=== PATIENT | female | born 1985 | race Caucasian/White ===

== ENCOUNTER → 2016-07-26 | Outpatient (CLI) | payer OTHER ==
--- NOTE | 2016-07-26 15:45 | US ---
July 26, [address] Igor Michaud, Thank you for requesting a ultrasound to evaluate the anatomy for your patient, Mrs. Miranda. As you know, Libby is a 31 year old G 2, P 1001 with a sparrow dating 19 w 4 d; VICKI of 12/16 by 6 week ultrasound. She was offered a Aneuploidy screening. Her obstetrical history reveals a section for arrest of dilation. Her son weighed 9 lbs. 2 oz. ULTRASOUND Number of fetuses: 1 Placental location: Posterior; no evidence of previa Placental cord insertion: Intraplacental presentation: Breech Cervix: 3.5 cm viewed transabdominally Maximum Vertical Pocket: 3.2 cm The adnexa were evaluated. No pathology was seen. Right ovary is visualized and seen as normal. It measures 1.7 x 1.3 x 1.7 cm. Left ovary is visualized and seen as normal. It measures 2.3 x 2.1 x 1.8 cm. MEASUREMENTS: Biparietal diameter: 46 mm 19 weeks, 6 days Head circumference: 173 mm 19 weeks, 6 days Abdominal circumference: 147 mm 20 weeks, 0 days Femur length: 31 mm 19 weeks, 6 days Humerus length: 28 mm 19 weeks, 1 days Transcerebellar diameter: 20 mm 19 weeks, 4 days Average ultrasound age: 20 weeks, 0 days Estimated weight: 316 gm weight percentile: 62% ANATOMY Supratentorial brain: Normal including views of the falx, cavum septum pellucidum and choroids Lateral Ventricle: Normal, measuring 4.5 mm Posterior fossa: Normal including the cerebellum and cisterna magna Spine: Normal with limited views of the sacrum secondary to position Nuchal fold: 4.2 mm normal Face: Normal views of the lip and nose area Profile: Normal Palate: Normal appearance of the alveolar ridge Heart: Four Chamber View: Normal including the intraventricular Septum LVOT: Normal RVOT: Normal 3VV: Normal Tracheal View: Normal Aortic Arch: Seen Ductal Arch: Seen SVC/IVC: Seen Heart Rate 152 bpm Diaphragm: Normal appearance without overt abnormality detected Stomach: Normal Umbilical cord insertion: Normal Right kidney: Normal Left kidney: Normal Bladder: Normal Number of cord vessels: Three Upper extremities: Normal Lower extremities: Normal Gender: Male IMPRESSION: 1. Intrauterine at 19 w 4 d, ultrasound is consistent with her established VICKI of 12/16/16 . 2. Normal anatomical survey. 3. Cervical length is normal at 3.5 cm without evidence of insufficiency. RECOMMENDATIONS: I was pleased to review today's ultrasound with your patient and her spouse. I reassured them that t he baby is growing appropriately with normal amniotic fluid volume. Our detailed review of the anatomy did not reveal any overt abnormalities. The following anatomy was not well seen: sa brunilda. However, given the normal appearance of the posterior fossa, the risk of ONTD is very limited. Future ultrasound and consultation is left to your clinical discretion. Thank you for allowing us the opportunity to evaluate your patient. Should you have any further ques tions or concerns please do not hesitate to contact me. Low risk; no E&M. Julianne Hernandez MD Deli/Bak[employer] Associate Maternal Medicine Diagnosis Department of Obstetrics & Gynecology [facility]
== END ==
LOC: FIMAGING 14:25
PROVIDERS: ATTEND Obstetrics & Gynecology
DX: Z34.82 Encounter for supervision of other normal pregnancy, second trimester (principal); Z3A.19 19 weeks gestation of pregnancy

== ENCOUNTER 2016-12-09 07:30 | Inpatient (IN) | payer OTHER ==
[~2016-12-09 07:30] MED LIST: LR 1,000 ML IV SCH; LR 500 ML IV ONE; ceFAZolin 2 GM/DEXTROSE 100 ML IV ONE
[2016-12-13] MEDS ORDERED: CITRIC ACID/SODIUM CITRATE 30 ML UDCUP PO ONE (08:26)
[2016-12-13] MEDS ORDERED: LR 500 ML IV ONE (08:26)
[2016-12-13] MEDS ORDERED: ceFAZolin 2 GM/DEXTROSE 100 ML IV ONE (08:26)
[2016-12-13] MEDS ORDERED: LR 1,000 ML IV SCH (08:30)
[2016-12-13 08:58] LABS: % IMMATURE GRANULYOCYTES 0.5 % (0.0-1.1); ABSOLUTE IMMATURE GRANULOCYTES 0.03 10^3/uL (0.00-0.10); ADD DIFF? NO; ADD MORPH? NO; ADD SCAN? NO; ATYPICAL LYMPHOCYTE FLAG 10 (0-99); FRAGMENT RBC FLAG 0 (0-99); HEMATOCRIT 34.6 % (38.0-47.0); HEMOGLOBIN 11.4 g/dL (12.6-16.3); LEFT SHIFT FLG 0 (0-99); LIPEMIA HEMOLYSIS FLAG 80 (0-99); MEAN CELL HEMOGLOBIN 28.8 pg (27.9-34.1); MEAN CELL HEMOGLOBIN CONCENTR. 32.9 g/dL (32.4-36.7); MEAN CELL VOLUME 87.4 fL (81.5-99.8); MEAN PLATELET VOLUME 12.1 fL (8.7-11.7); PLATELET CLUMPS FLAG 0 (0-99); PLATELET COUNT 141 10^3/uL (150-400); RED BLOOD CELL COUNT 3.96 10^6/uL (4.18-5.33)
[2016-12-13] MEDS ORDERED: PROMETHAZINE HCL 25 MG/ML INJ IVP PRN (09:28)
[2016-12-13] MEDS ORDERED: SIMETHICONE 80 MG TAB CHEW PO PRN (09:28)
--- NOTE | 2016-12-13 09:40 | PREANESOB ---
Obstetric Pre-Anesthesia Info - General Info Proposed Procedure: Repeat C Section : 2 Para: 1 WBD: 39 - Info Status: Full Term Monitors: External FHR Baseline (bpm): 120 FHR Pattern: Reassuring - Labor Status Section History: Repeat Indications for Current Section: Elective/Repeat Labor Epidural: No Anesthesia ROS: Prior epidural for labor and C Section. Allergies/Adverse Reactions: Allergy/AdvReac Type Severity Reaction Status Date / Time No Known Allergies Allergy Unverified 12/07/16 09:01 Visit Medications: Generic Name Dose Route Start Last Admin Trade Name Freq PRN Reason Stop Dose Admin Hydrocodone Bitart/Acetaminophen 1 - 2 tab 12/13/16 09:28 [place] 5/325 PO 12/23/16 09:27 Q4HRS PRN Pain, Moderate Docusate Sodium 100 mg 12/13/16 09:28 Colace PO 06/11/17 09:27 BID PRN Constipation Lactated Ringer's 1,000 mls @ 125 mls/hr 12/07/16 09:30 Lr IV 06/05/17 09:29 CONT CHRISSY Lactated Ringer's 1,000 mls @ 125 mls/hr 12/13/16 08:30 Lr IV 06/11/17 08:29 CONT CHRISSY Ketorolac Tromethamine 30 mg 12/13/16 12:00 Toradol IVP 12/14/16 06:01 Q6HRS CHRISSY Promethazine HCl 25 mg 12/13/16 09:28 Phenergan IVP 06/11/17 09:27 Q6HRS PRN Nausea/Vomiting, Use 1st Simethicone 80 mg 12/13/16 09:28 Mylicon PO 06/11/17 09:27 .TIDMEALS AND HS PRN Gas Discontinued Medications Generic Name Dose Route Start Last Admin Trade Name Freq PRN Reason Stop Dose Admin Citric Acid/Sodium Citrate 30 ml 12/13/16 08:26 Bicitra PO 12/13/16 08:27 ONCALL ONE Cefazolin Sodium/Dextrose 100 mls @ 200 mls/hr 12/07/16 09:01 Ancef 2 Gm (Premix) IV 12/07/16 09:30 ONCALL ONE Protocol Lactated Ringer's 500 mls @ 0 mls/hr 12/07/16 09:01 Lr IV 12/07/16 09:02 ONCE ONE As Directed Cefazolin Sodium/Dextrose 100 mls @ 200 mls/hr 12/13/16 08:26 Ancef 2 Gm (Premix) IV 12/13/16 08:55 ONCALL ONE Protocol Lactated Ringer's 500 mls @ 0 mls/hr 12/13/16 08:26 Lr IV 12/13/16 08:27 ONCE ONE As Directed - Anesthesia History Response to Local Anesthetics: Normal Anesthesia & Operative History: No Prior Problems Family Anesthesia History: Negative - Social History Substance Use/Abuse: Denies - Focused Exam Blood Pressure: 103/61 Heart Rate: 74 Height/Weight (Nursing): Height 165.1 cm Weight 69.4 kg Airway: No abnormalities. Physical Exam: Within normal limits. ASA Status: II Labs: 12/13/16 08:30 - Plan Anesthetic Plan: SAB Consent Signed and on Chart: Yes Patient/Guardian Understands and Agrees to Plan: Yes
[2016-12-13] MEDS ORDERED: morphINE PF 5 MG/10 ML INJ ONE (09:46)
[2016-12-13] MEDS ORDERED: fentaNYL 100 MCG/2 ML INJ ONE (09:46)
[2016-12-13] MEDS ORDERED: OXYTOCIN 100 UNITS/10 ML VIAL ONE (10:55)
[2016-12-13] MEDS ORDERED: DEXAMETHASONE 4 MG/ML VIAL ONE ×2 (10:55)
[2016-12-13] MEDS ORDERED: PHENYLEPHRINE HCL 100 MCG/ML SYR ONE (10:55)
[2016-12-13] MEDS ORDERED: ONDANSETRON 4 MG/2 ML VIAL ONE ×2 (10:55)
--- NOTE | 2016-12-13 11:02 | OBDEL ---
Info Type: Repeat GBS+: No Operative Report - Delivery Pre-op Diagnoses: repeat C/S Post-op Diagnoses: repeat C/S Nulliparous Prior to Delivery: No Presentation at Delivery: Vertex Procedure: Scheduled, Low Transverse Surgeon: Radha Dougherty Supervisor Nurse: Liberty Beltran Anesthesiologist: Ivan Duncan Autocad Technician/WELCOME WAGON HOSTESS: Priya Ghosh L&Lilia Analgesia/Anesthesia Type: Spinal Complications: Other (Specify) (vacuum assisted delivery) IV Fluid (ml): 2,000 EBL: 1000 [place] Data [place] Delivery Date: 12/13/16 Delivery Time: 10:41 Sex of : Male Score (1 Min): 8 Score (5 Min): 9 ICD10 Worksheet Patient Problems: Problems Problem Status Onset Previous section Acute
--- NOTE | 2016-12-13 11:39 | GOP ---
[f rep st] OPERATIVE REPORT DATE OF OPERATION: 12/13/2016 SURGEON: Radha Michaud MD SCOUT EXECUTIVE: Liberty Beltran, certified nurse hoe runner. ANESTHESIA: Spinal. PREOPERATIVE DIAGNOSIS: Intrauterine at 39+ weeks gestation with previous section, desires repeat. POSTOPERATIVE DIAGNOSIS: Intrauterine at 39+ weeks gestation with previous section, desires repeat. PROCEDURE PERFORMED: Repeat low-transverse section. FINDINGS: Viable male infant, Apgars 8 and 9. SPECIMENS: None. ESTIMATED BLOOD LOSS: 1000 mL. INDICATIONS: The patient is a 31-year-old, G1, P0, female who is at 39+ weeks gestation who presents for repeat low-transverse section. DESCRIPTION OF PROCEDURE: The patient was taken to the operating room. She was prepped and draped in normal sterile fashion in the dorsal supine position with a leftward tilt. A surgical time-out was performed verifying the patient' s name, date of , planned procedure, and site. The patient received 2 g of Ancef preoperatively. A Pfannenstiel skin incision was made in the elliptical fashion removing the prior incision. The fascia was incised in the midline and extended laterally. The superior aspect of the fascia was grasped with Chapin clamps, the rectus muscles dissected off bluntly, and with the Bovie cautery, the inferior aspect of the fascia was grasped with Chapin clamps , the rectus muscles dissected off bluntly and with the Bovie cautery, The peritoneum was identified and entered bluntly. The peritoneum was divided. The vesicouterine peritoneum was incised with the Metzenbaum scissors and a bladder flap was created digitally. The bladder blade was replaced. The uterus was incised with a scalpel, and this extended laterally with the bandage scissors. The infant was delivered via vacuum suction. The cord was clamped and cut. Cord blood was obtained. The placenta was delivered spontaneously. The uterus was exteriorized and cleared of all clots and debris. The uterine incision was reapproximated with 0 Monocryl in a running locked fashion in 2 layers. The uterus was returned to the abdomen. The gutters were cleared of all clots and debris. The uterine incision was reinspected and noted to be hemostatic. The subfascial spaces were inspected and noted to be hemostatic. The fascia was reapproximated with 0 Vicryl in a running fashion. The subcutaneous tissue was irrigated and closed with 3-0 Monocryl and the skin was closed with 4-0 Monocryl. All counts were correct x2. COMPLICATIONS: None. OUTCOME: Stable to recovery room. /[id number]/MODL MTDD
[2016-12-13] MEDS: KETOROLAC 30 MG/1 ML SDV IVP SCH ×3 (11:54→23:59)
[2016-12-13] MEDS: HYDROCODONE/APAP 5/325 TAB PO PRN (21:24)
[2016-12-14] MEDS: HYDROCODONE/APAP 5/325 TAB PO PRN ×4 (01:30→19:54)
[2016-12-14] MEDS: DOCUSATE SODIUM 100 MG CAP PO PRN ×2 (01:32→10:06)
[2016-12-14] MEDS: KETOROLAC 30 MG/1 ML SDV IVP SCH (06:03)
--- NOTE | 2016-12-14 08:43 | OBGCSDC ---
General Delivery Information - General Info : 2 Para: 2 Delivery Physician/CNM: Radha Dougherty Rail Crew Member: Liberty Beltran Admission Date: 12/13/16 Labs: Patient ABO/Rh O POSITIVE 12/13/16 08:30 Hct 26.3 % (38.0-47.0) L D 12/14/16 04:20 Vaginal - Diagnosis Presentation at Delivery: Vertex - Operations/Procedures L&D Analgesia/Anesthesia Type: Spinal - Delivery Number of Prior Sections: 1 Indications for Current Section: Elective/Repeat Type: Repeat Surgical Procedures: Scheduled Intra-op Complications: None EBL: 1000 ml L&D Analgesia/Anesthesia Type: Spinal - Hospital Course Antepartum: uncomplicated Intrapartum: uncomplicated : uncomplicated [place] Data [place] Delivery Date: 12/13/16 Delivery Time: 10:41 VICKI: 12/13/16 Gestational Age: 40 week(s) and 1 day(s) Sex of Infant: Male [place] Weight (gm): 3680 g Score (1 Min): 8 Score (5 Min): 9
[2016-12-14] MEDS ORDERED: POLYETHYLENE GLYCOL 3350 17 GM PKT PO PRN (08:45)
[2016-12-14] MEDS ORDERED: BISACODYL 10 MG SUPP PR PRN (08:45)
[2016-12-14] MEDS ORDERED: LACTULOSE 20 GM/30 ML UDCUP PO PRN (08:45)
[2016-12-14] MEDS ORDERED: MAGNESIUM HYDROXIDE 30 ML UDCUP PO PRN (08:45)
--- NOTE | 2016-12-14 08:45 | SOAPPROG ---
SOAP Progress Note Assessment/Plan: Assessment: 31 yo s/p rltcs, pod 1, doing well. Plan: 12/14/16 08:43 Routine postop care. Rh +, rubella immune. HCT appropriate drop for EBL of 1000 ml, will rec begin iron. Anticipate d/c on . Subjective: 31 yo s/p rltcs, pod 1, doing well. Objective: Vital Signs Temp Pulse Resp BP Pulse Ox 36.8 C 77 14 86/52 L 93 12/14/16 04:31 12/14/16 04:31 12/14/16 04:31 12/14/16 04:31 12/14/16 04:31 Laboratory Results 12/14/16 04:20 12/13/16 12/14/16 12/15/16 05:59 05:59 05:59 Intake Total 4800 Output Total 6050 Balance -1250 Physical Exam - Physical Exam General Appearance: no apparent distress Respiratory: lungs clear Cardiac/Chest: regular rate, rhythm Abdomen: non-tender Skin: warm/dry Extremities: normal range of motion, non-tender Neuro/Psych: oriented x 3 ICD10 Worksheet Patient Problems: Problems Problem Status Onset Previous section Acute
[2016-12-14] MEDS: IRON POLYSAC/IRON HEME 28 MG TAB PO SCH (10:07)
[2016-12-14] MEDS: SENNOSIDES/DOCUSATE SODIUM TAB PO SCH ×2 (18:36→19:53)
[2016-12-14] MEDS: IBUPROFEN 600 MG TAB PO PRN (21:50)
[2016-12-15] MEDS: HYDROCODONE/APAP 5/325 TAB PO PRN ×5 (01:22→19:46)
[2016-12-15] MEDS: IBUPROFEN 600 MG TAB PO PRN ×3 (04:05→17:52)
--- NOTE | 2016-12-15 08:42 | OBGCSDC ---
General Delivery Information - General Info : 2 Para: 2 Delivery Physician/CNM: Radha Dougherty Ivory Polisher: Liberty Beltran Admission Date: 12/13/16 Labs: Patient ABO/Rh O POSITIVE 12/13/16 08:30 Hct 26.3 % (38.0-47.0) L D 12/14/16 04:20 Vaginal - Diagnosis Presentation at Delivery: Vertex - Operations/Procedures L&D Analgesia/Anesthesia Type: Spinal - Delivery Number of Prior Sections: 1 Type: Repeat Surgical Procedures: Scheduled Intra-op Complications: None EBL: 1000 ml L&D Analgesia/Anesthesia Type: Spinal - Hospital Course Antepartum: Scheduled repeat LTCS Intrapartum: Repeat C/S, EBL 1000 ml : Routine post-op care. Meeting all milestones on POD#2. Rh pos, Rub imm Appropriate drop in H/H from 34.6 to 26.3 after EBL 1000 ml. Home with iron. Asymptomatic Data [place] Delivery Date: 12/13/16 Delivery Time: 10:41 VICKI: 12/13/16 Gestational Age: 40 week(s) and 2 day(s) Sex of : Male [place] Weight (gm): 3680 g Score (1 Min): 8 Score (5 Min): 9 Discharge Information - Discharge Information Discharge Medications: Iron, Hydrocodone, Ibuprofen Condition: Good Instruction/Follow Up: See Instruction Sheet, Two Weeks Discharge Physician/CNM: Rosemary Turner
[2016-12-15] MEDS: IRON POLYSAC/IRON HEME 28 MG TAB PO SCH (08:57)
[2016-12-15] MEDS: SENNOSIDES/DOCUSATE SODIUM TAB PO SCH ×2 (08:57→19:46)
[2016-12-15] MEDS: DOCUSATE SODIUM 100 MG CAP PO PRN (19:45)
[2016-12-15 20:55] VITALS: BP 91/63; PULSE 79; RESP 16; TEMP 97.9; O2SAT 95
== END 2016-12-15 21:00 | disposition home or self-care (01) | DRG 766 ==
LOC: FLD 12-13 07:35 → FOB 12-13 12:42
PROVIDERS: ADMIT Obstetrics & Gynecology; ATTEND Obstetrics & Gynecology
PROC: 10D00Z1 Extraction of Products of Conception, Low, Open Approach (ICD-10-PCS; principal; 2016-12-13)
DX: O34.211 Maternal care for low transverse scar from previous cesarean delivery (principal); Z3A.39 39 weeks gestation of pregnancy; Z37.0 Single live birth
CPT/HCPCS: J0690; J1100; J1885; J2274; J2370; J2405; J2550; J2590; J3010

== ENCOUNTER 2017-02-11 17:09 | Emergency (ER) | payer OTHER ==
[2017-02-11 17:25] VITALS: O2SAT 98
--- NOTE | 2017-02-11 17:38 | EDPHY ---
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 Time Seen by Provider: 02/11/17 17:37 - Personal History Current Tetanus Diphtheria and Acellular Pertussis (TDAP): Yes - Medical/Surgical History Other PMH: healthy - Social History Smoking Status: Never smoked Constitutional: Initial Vital Signs Temperature (C) 36.6 C 02/11/17 17:15 Heart Rate 84 02/11/17 17:15 Respiratory Rate 18 02/11/17 17:15 Blood Pressure 108/80 02/11/17 17:15 O2 Sat (%) 98 02/11/17 17:15 O2 Delivery Mode Room Air Allergies/Adverse Reactions: No Known Allergies Allergy (Verified 02/11/17 17:25) Home Medications: Medication Instructions Recorded NK [No Known Home Meds] 02/11/17 Medical Decision Making ED Course/Re-evaluation: CHIEF COMPLAINT: HISTORY OF PRESENT ILLNESS: must have 4 elements: Location, Quality, Severity , Duration, Timing, Context, Modifying Factors, Associated Signs and Symptoms REVIEW OF SYSTEMS: A 10 point review of systems was performed and is negative with the exception of the elements mentioned in the history of present illness. PHYSICAL EXAM: HR, BP, O2 Sat, RR. Temp noted General Appearance: Alert, well hydrated, appropriate, and non-toxic appearing. Head: Atraumatic without scalp tenderness or obvious injury Eyes: Pupils equal, round, reactive to light and accommodation, EOMI, no trauma , no injection. Ears: Clear bilaterally, no perforation, normal landmarks Nose: Atraumatic, no rhinorrhea, clear. Throat: There is no erythema or exudates, no lesions, normal tonsils, mucus membranes moist. Neck: Supple, 2+ carotid upstroke, nontender, no lymphadenopathy. Respiratory: No retractions, no distress, no wheezes, and no accessory muscle use. Lungs are clear to auscultation bilaterally. Cardiovascular: Regular rate and rhythm, no murmurs, rubs, or gallops. Bilateral carotid, radial, dorsalis pedis, and posterior tibial pulses intact. Good capillary refill all extremities. Gastrointestinal: Abdomen is soft, nontender, non-distended, no masses, no rebound, no guarding, no peritoneal signs. Musculoskeletal: Normal active ROM of all extremities, atraumatic. Neurological: Alert, appropriate, and interactive. The patient has normal DTRs and non-focal cranial nerves, motor, sensory, and cerebellar exam. Skin: No rashes, good turgor, no nodules on palpation. Past medical history: Past surgical history: Family history: Social history: DIAGNOSTICS/PROCEDURES/CRITICAL CARE TIME: DIFFERENTIAL DIAGNOSIS: MEDICAL DECISION MAKING: Departure - Departure Referrals: NISHI CASTILLO MD [Other] - As per Instructions
[2017-02-11 18:14] LABS: % IMMATURE GRANULYOCYTES 0.1 % (0.0-1.1); ABSOLUTE IMMATURE GRANULOCYTES 0.01 10^3/uL (0.00-0.10); ADD DIFF? NO; ADD MORPH? NO; ADD SCAN? NO; ATYPICAL LYMPHOCYTE FLAG 10 (0-99); FRAGMENT RBC FLAG 0 (0-99); HEMOGLOBIN 13.4 g/dL (12.6-16.3); LEFT SHIFT FLG 0 (0-99); LIPEMIA HEMOLYSIS FLAG 80 (0-99); MEAN CELL HEMOGLOBIN 28.8 pg (27.9-34.1); MEAN CELL HEMOGLOBIN CONCENTR. 32.7 g/dL (32.4-36.7); MEAN CELL VOLUME 88.2 fL (81.5-99.8); MEAN PLATELET VOLUME 10.9 fL (8.7-11.7); PLATELET CLUMPS FLAG 0 (0-99); PLATELET COUNT 272 10^3/uL (150-400); RED BLOOD CELL COUNT 4.65 10^6/uL (4.18-5.33)
[2017-02-11 18:33] LABS: ALANINE AMINOTRANSFERASE 85 IU/L (9-52); ALBUMIN 4.5 g/dL (3.5-5.0); ALKALINE PHOSPHATASE 79 IU/L (38-126); ANION GAP 13 mEq/L (8-16); ASPARTATE AMINOTRANSFERASE 50 IU/L (14-46); BILIRUBIN,TOTAL 0.3 mg/dL (0.1-1.4); BILIRUBIN-CONJUGATED 0.2 mg/dL (0.0-0.5); BILIRUBIN-UNCONJUGATED 0.1 mg/dL (0.0-1.1); CALCIUM 9.6 mg/dL (8.5-10.4); CARBON DIOXIDE 26 mEq/l (22-31); CHLORIDE 102 mEq/L (97-110); CREATININE 0.7 mg/dL (0.6-1.0); GLOMERULAR FILTRATION RATE > 60; GLUCOSE 105 mg/dL (70-100); POTASSIUM 4.5 mEq/L (3.5-5.2); SODIUM 141 mEq/L (134-144); TOTAL PROTEIN 7.3 g/dL (6.3-8.2)
[2017-02-11 18:34] LABS: COLOR YELLOW; LEUKOCYTE ESTERASE,URINE NEGATIVE (NEGATIVE); NITRITE,URINE NEGATIVE (NEGATIVE)
--- NOTE | 2017-02-11 18:46 | EDPHY ---
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 Patient reports the onset of symptoms over the last few days. She describes diffuse cramping. In addition she feels bloated. She is concerned because now she has noted a change in the color of her stool to hand. She denies potential precipitating factors. She denies alleviating factors. She denies other associated signs or symptoms including no fevers, no vomiting, no diarrhea or constipation, no urinary symptoms. She is by 2 months. Review of systems: A 10 point review of systems was obtained and other than described above was negative - Personal History Current Tetanus Diphtheria and Acellular Pertussis (TDAP): Yes - Medical/Surgical History Other PMH: healthy - Social History Smoking Status: Never smoked - Physical Exam Exam: General Appearance: Alert, no distress. Eyes: Pupils equal and round no pallor or injection. ENT, Mouth: Mucous membranes moist. Respiratory: There are no retractions, lungs are clear to auscultation. Cardiovascular: Regular rate and rhythm. Gastrointestinal: Abdomen is soft and nontender, no masses, bowel sounds normal. Neurological: Alert and oriented x4. Strength and sensation intact and symmetrical. Skin: Warm and dry, no rashes. Musculoskeletal: Neck is supple nontender. Extremities are symmetrical, full range of motion. Psychiatric: Patient is oriented X 3, there is no agitation. Constitutional: Initial Vital Signs Temperature (C) 36.6 C 02/11/17 17:15 Heart Rate 84 02/11/17 17:15 Respiratory Rate 18 02/11/17 17:15 Blood Pressure 108/80 02/11/17 17:15 O2 Sat (%) 98 02/11/17 17:15 O2 Delivery Mode Room Air Allergies/Adverse Reactions: No Known Allergies Allergy (Verified 02/11/17 17:25) Home Medications: Medication Instructions Recorded NK [No Known Home Meds] 02/11/17 Medical Decision Making ED Course/Re-evaluation: Patient is discussed with my secondary supervising physician Dr. Shravan Hartmann. Patient presents to the emergency department for abdominal cramping and bloating and changes in stool color. She is nontoxic. Vital signs are stable. Abdominal exam is benign. Blood studies show trace elevation of LFTs otherwise unremarkable. My suspicion for serious underlying pathology is low including no evidence of complications. She will be discharged home. She is asked to follow up with primary care doctor or GI doctor for continued care. Strict return precautions are given. Patient voiced understanding and agreement with plan. Differential Diagnosis: Included but not limited to hepatitis, biliary tract disease, dietary changes, dietary supplements - Data Points Laboratory Results: Laboratory Results 02/11/17 17:56 02/11/17 17:56 Departure - Departure Disposition: Home, Routine, Self-Care Clinical Impression: Abdominal bloating, Elevated LFTs, Stool color abnormal Condition: Good Instructions: Gas and Bloating (ED) Additional Instructions: Follow-up with her primary care doctor for continued evaluation and care If symptoms worsen or new symptoms develop return to the emergency room for recheck Referrals: NISHI CASTILLO MD [Other] - As per Instructions Carlos Reyes MD [Medical Doctor] - As per Instructions
[2017-02-11 18:58] VITALS: BP 108/85; PULSE 82; RESP 16; TEMP 97.5
== END 2017-02-11 19:00 | disposition home or self-care (01) ==
DX: R14.0 Abdominal distension (gaseous) (principal); R79.89 Other specified abnormal findings of blood chemistry; R19.5 Other fecal abnormalities